=== PATIENT | female | born 1980 | race Two or more races ===

== ENCOUNTER 2017-07-17 05:50 | Day surgery (SDC) | payer OTHER | END 2017-07-17 14:15 | disposition home or self-care (01) | LOC: CIR.AMB 05:50 | DX: N84.0 Polyp of corpus uteri (principal) ==

== ENCOUNTER 2019-05-19 16:40 | Emergency (ER) | payer OTHER ==
[~2019-05-19] VITALS: Ht 167.6 cm; Wt 77.1 kg
== END 2019-05-19 22:56 | disposition home or self-care (01) ==
LOC: ER 16:40
DX: M51.27 Other intervertebral disc displacement, lumbosacral region (principal)

== ENCOUNTER 2019-05-27 05:52 | Day surgery (SDC) | payer OTHER | END 2019-05-27 13:05 | disposition home or self-care (01) | LOC: CIR.AMB 05:52 | DX: N84.0 Polyp of corpus uteri (principal) ==

== ENCOUNTER 2020-03-17 19:49 | Emergency (ER) | payer OTHER ==
[~2020-03-17] VITALS: Ht 167.6 cm; Wt 72.6 kg
== END 2020-03-17 22:10 | disposition home or self-care (01) ==
LOC: ER 19:49
DX: M51.26 Other intervertebral disc displacement, lumbar region (principal)

== ENCOUNTER 2025-03-08 09:36 | Outpatient (CLI) | payer OTHER | END 2025-03-08 09:39 | disposition home or self-care (01) | LOC: SONOGRAMA 09:36 | PROVIDERS: ATTEND Pathology Anatomic Pathology | DX: D34 Benign neoplasm of thyroid gland (principal); E07.89 Other specified disorders of thyroid; E04.1 Nontoxic single thyroid nodule ==